=== PATIENT | female | born 1985 | race American Indian/Alaskan Native ===

== ENCOUNTER 2016-05-06 12:36 | Emergency (ER) | payer MEDICAID ==
--- NOTE | 2016-05-06 13:49 | Emergency Department Report ---
Chief Complaint: Abdominal Pain Stated Complaint: NAUSEA/VOMITING/BACK/ABD PAIN Time Seen by Provider: 05/06/16 13:39 - HPI History of Present Illness: The 10-year-old female that's 9 weeks comes in for nausea and vomiting 3 weeks. Complains of dysuria, denies any fever or chills off and on abdominal pains. Has any vaginal discharge or vaginal bleeding. Has not started care. - Exam Vital Signs: Vital Signs 05/06/16 13:12 Temperature 98.3 F Pulse Rate 83 Respiratory 16 Rate Blood Pressure 98/65 O2 Sat by Pulse 100 Oximetry Physical Exam: alert 3. Cardiovascular S1-S2 regular rate and rhythm respiratory clear to auscultation bilateral abdomen soft nondistended tenderness to the suprapubic area. Extremities there is no edema noted MSE screening note: Focused history and physical exam performed. Due to findings the following was ordered: CBC BMP urinalysis serum hCG patient be evaluated in main ER ED Disposition for MSE Condition: Stable Instructions: Abdominal Pain (ED)
[2016-05-06 14:12] LABS: Mean Corpuscular HGB Conc 33 % (30-34); Mean Corpuscular Hemoglobin 27 pg (28-32); Mean Corpuscular Volume 84 fl (79-97); Platelet Count 209 K/mm3 (140-440); Red Blood Count 5.12 M/mm3 (3.65-5.03); Red Cell Distribution Width 13.7 % (13.2-15.2); White Blood Count 7.5 K/mm3 (4.5-11.0)
[2016-05-06 14:26] LABS: Bacteria,Urine 1+ /HPF (Negative); Bilirubin,Urine NEG (Negative); Blood,Urine NEG (Negative); Ketones,Urine 20 mg/dL (Negative); Leukocyte Esterase,Urine NEG (Negative); Mucus,Urine 3+ /HPF; Nitrite,Urine NEG (Negative); Urobilinogen,Urine < 2.0 mg/dL (<2.0)
[2016-05-06 14:30] LABS: Blood Urea Nitrogen 9 mg/dL (7-17); Calcium 10.1 mg/dL (8.4-10.2); Carbon Dioxide 25 mmol/L (22-30); Chloride 97.1 mmol/L (98-107); Glucose 78 mg/dL (65-100); Sodium 135 mmol/L (137-145)
[2016-05-06 14:38] LABS: Anion Gap 17 mmol/L
--- NOTE | 2016-05-06 18:25 | Ultrasound Report ---
FINAL REPORT EXAM: US OB < = 14 WEEKS FETUS HISTORY: abd pain reports 9 weeks, HCG < 111,000 TECHNIQUE: Transabdominal ultrasound was performed in multiple grayscale sonographic images were obtained of the uterus and adnexa. PRIORS: Endovaginal ultrasound from 05/06/2016 FINDINGS: Uterus measures approximately 9.5 x 5.9 x 6.9 centimeters. Roche intrauterine is noted. [place]-rump length is approximately 2.7 centimeters. heart rate was detected at 166 beats per minute. Right ovary is measured at approximately 3.1 x 2 x 1.6 centimeters. Left ovary is measured at approximately 2.8 x 1.4 x 2.3 centimeters. IMPRESSION: 1. Viable single intrauterine with estimated gestational age 9 weeks 3 days. Continued follow-up is recommended.
--- NOTE | 2016-05-06 18:26 | Ultrasound Report ---
FINAL REPORT EXAM: US OB TRANSVAGINAL HISTORY: abd pain TECHNIQUE: Endovaginal ultrasound was performed in multiple grayscale sonographic images were obtained of the uterus and adnexa. PRIORS: Transabdominal ultrasound from 05/06/2016 FINDINGS: There is a viable single intrauterine . [place]-rump length is approximately 2.7 centimeters. heart rate was detected at 166 beats per minute. Right and left ovary measure approximately 3.6 x 2.3 x 1.9 centimeters and 2.8 x 2 x 2.1 centimeters, respectively. IMPRESSION: 1. Viable single intrauterine with estimated gestational age 9 weeks 3 days. 2. Please refer to transabdominal ultrasound report from 05/06/2016 for additional information.
[2016-05-07] MEDS ORDERED: NACL 0.9% 1000 ML 1,000 ML IV ONE (00:46)
[2016-05-07] MEDS ORDERED: ZOFRAN IV ONE (00:46)
--- NOTE | 2016-05-07 00:46 | Emergency Department Report ---
HPI - General Chief Complaint: Abdominal Pain Time Seen by Provider: 05/06/16 13:39 - HPI HPI: This is a 30-year-old female who is about 9 weeks who presents to the emergency department with the complaint of a 3 week history of nausea and vomiting, and a more recent history over the past few days of lower abdominal pain and lower back pain. She denies any vaginal bleeding, dysuria, vaginal discharge. She denies any numbness or paresthesias, problems with bowel or bladder any neurological deficits. She saw Dr. Rust for AERONAUTICS COMMISSION DIRECTOR but has a new appointment with a new AERONAUTICS COMMISSION DIRECTOR tomorrow. The patient presented by EMS because she got very dizzy at work today and had to lie down underneath her desk and her coworkers called 911. She did not receive anything for symptoms in route. Patient has been taking Zofran for her symptoms with some transient relief. Patient says she's been having trouble keeping down both liquids and solids but does admit to keeping down some water in the waiting room, as well as 3 bags of chips. She denies any fever, chest pain, shortness of breath. ED Past Medical Hx - Past Medical History Hx Asthma: Yes Additional medical history: menstral cramps - Social History Smoking Status: Never Smoker Substance Use Type: Marijuana - Medications Home Medications: Home Medications Medication Instructions Recorded Confirmed Last Taken Type Nitrofurantoin [place]/M-Cryst 100 mg PO Q12HR #10 capsule 04/24/16 Unknown Rx [Macrobid CAP] Ondansetron [Zofran Odt] 4 mg PO Q8HR PRN #20 tab.rapdis 04/24/16 Unknown Rx Pnv95/Ferrous Fumarate/FA 1 each PO DAILY 04/24/16 04/24/16 Unknown History [ Caplet] Vit W-Ca,Fe,FA(<1 mg) 1 each PO DAILY #30 tablet 04/24/16 Unknown Rx [ Vitamins] ED Review of Systems ROS: Stated complaint: NAUSEA/VOMITING/BACK/ABD PAIN Other details as noted in HPI Comment: All other systems reviewed and negative Constitutional: denies: chills, fever Eyes: denies: eye pain, eye discharge, vision change ENT: denies: ear pain, throat pain Respiratory: denies: cough, shortness of breath, wheezing Cardiovascular: denies: chest pain, palpitations Gastrointestinal: abdominal pain, nausea, vomiting Genitourinary: denies: urgency, dysuria, discharge Musculoskeletal: back pain. denies: arthralgia Skin: denies: rash, lesions Neurological: denies: headache, weakness, paresthesias Physical Exam - Physical Exam Vital Signs: Vital Signs 05/06/16 13:12 Temperature 98.3 F Pulse Rate 83 Respiratory 16 Rate Blood Pressure 98/65 O2 Sat by Pulse 100 Oximetry Physical Exam: GENERAL: The patient is well-developed well-nourished. HEENT: Normocephalic. Atraumatic. Extraocular motions are intact. Patient has moist mucous membranes. Pupils equal reactive to light bilaterally. NECK: Supple. Trachea is midline. CHEST/LUNGS: Clear to auscultation. There is no respiratory distress noted. HEART/CARDIOVASCULAR: Regular. There is no tachycardia. There is no gallop rub or murmur. ABDOMEN: Abdomen is soft. Very mild tenderness to palpation to the lower quadrants of the abdomen. No guarding rebound tenderness. Patient has normal bowel sounds. There is no abdominal distention. SKIN: There is no rash. There is no edema. There is no diaphoresis. NEURO: The patient is awake, alert, and oriented. The patient is cooperative. The patient has no focal neurologic deficits. The patient has normal speech. MUSCULOSKELETAL: There is no tenderness or deformity. There is no limitation range of motion. There is no evidence of acute injury. ED Course Vital Signs 05/06/16 13:12 Temperature 98.3 F Pulse Rate 83 Respiratory 16 Rate Blood Pressure 98/65 O2 Sat by Pulse 100 Oximetry ED Medical Decision Making - Lab Data Result diagrams: 05/06/16 13:59 05/06/16 13:59 - Radiology Data Radiology results: report reviewed Transvaginal/ ultrasound shows a live intrauterine at about 9-1/ 2 weeks. - Medical Decision Making 30-year-old female presents to the emergency department with a few weeks of nausea and vomiting and a few days of lower abdominal pain. No vaginal bleeding. Patient's labs are mostly unremarkable. There are about 20 ketones in the urine showing some mild dehydration. However the patient was able to keep down fluid and chips from the waiting room and emergency department. Patient was given 1 L bolus of IV fluid resuscitation. Patient says she already has antiemetics at home. She has an appointment tomorrow with a new OB/ PARKING PATROLLER. Vital signs stable throughout her ED course. Patient appears safe for discharge home at this time. She'll return to the ER with any intractable nausea or fever, inability to stay hydrated, vaginal bleeding, or any acute distress. - Differential Diagnosis , miscarriage, hyperemesis gravidarum, colitis Critical Care Time: No Critical care attestation.: If time is entered above; I have spent that time in minutes in the direct care of this critically ill patient, excluding procedure time. ED Disposition Clinical Impression: Nausea and vomiting during , Dehydration Qualifiers: Weeks of gestation: 9 weeks Qualified Code(s): Z3A.09 - 9 weeks gestation of Disposition: DISCHARGED TO HOME OR SELFCARE Is pt being admited?: No Does the pt Need Aspirin: No Condition: Stable Instructions: Abdominal Pain (ED), (ED), Dehydration (ED) Additional Instructions: Please follow-up with your AERONAUTICS COMMISSION DIRECTOR tomorrow as previously scheduled. Increase your oral rehydration. Return to the emergency department with any worsening of your symptoms or any acute distress. Referrals: PRIMARY CAREMD [Primary Care Provider] - 3-5 Days Forms: Work/School Release Form(ED) Time of Disposition: 02:27
[2016-05-07 02:53] VITALS: BP 93/67
== END 2016-05-07 02:54 | disposition home or self-care (01) ==
LOC: ED 12:36
DX: O21.0 Mild hyperemesis gravidarum (principal); O26.891 Other specified pregnancy related conditions, first trimester; E86.0 Dehydration; Z3A.09 9 weeks gestation of pregnancy; J45.909 Unspecified asthma, uncomplicated; F12.10 Cannabis abuse, uncomplicated
CPT/HCPCS: 36415; 76801; 76817; 80048; 81001; 84702; 85027; 96361; 96374; 99284; J2405; J7030

== ENCOUNTER 2018-01-12 11:56 | Emergency (ER) | payer MEDICAID ==
[2018-01-12 12:19] VITALS: BP 109/63
== END 2018-01-12 14:52 ==
LOC: ED 11:56
DX: H11.31 Conjunctival hemorrhage, right eye (principal); Z53.21 Procedure and treatment not carried out due to patient leaving prior to being seen by health care provider

== ENCOUNTER 2020-11-19 09:16 | Emergency (ER) | payer OTHER, MEDICAID ==
[2020-11-19 12:39] VITALS: BP 101/48
[2020-11-19] MEDS ORDERED: HYDROcodone/ACETAMINOPHEN 10-325MG TAB PO ONE (13:03)
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
== END 2020-11-19 14:35 | disposition home or self-care (01) ==
LOC: ED 09:16
DX: S39.012A Strain of muscle, fascia and tendon of lower back, initial encounter (principal); S13.4XXA Sprain of ligaments of cervical spine, initial encounter; J45.909 Unspecified asthma, uncomplicated; F17.200 Nicotine dependence, unspecified, uncomplicated; V49.49XA Driver injured in collision with other motor vehicles in traffic accident, initial encounter; Y93.89 Activity, other specified; Y92.89 Other specified places as the place of occurrence of the external cause; Y99.8 Other external cause status
CPT/HCPCS: 72040; 72100; 99283